=== PATIENT | female | born 1965 | race Caucasian/White ===

== ENCOUNTER → 2020-12-25 15:42 | Outpatient (BNVA) | payer BC, SELFPAY | PROVIDERS: PCP Internal Medicine; Visit Provider Internal Medicine ==

== ENCOUNTER 2022-12-25 15:49 | Outpatient (AMB) | payer BC, SELFPAY ==
[2022-12-25 16:06] VITALS: BP 120/70; PULSE 84; O2SAT 96; BMI 27.3
--- NOTE | 2022-12-25 16:06 | MHC.OFFVIS ---
Intake Vital Signs 12/25/22 16:06 Height 5 ft 3 in Weight 154 lb BMI 27.3 BP 120/70 Blood Pressure Location Lt brachial Position Sitting Pulse 84 Pulse Source Pulse Oximeter Pulse Oximetry (%) 96 Oxygen Delivery Method Room Air Intake Visit Reasons: Obstructive sleep apnea Intake Note: pt is here for follow up and states she is having a problem with use of cpap. Supervisor Lead Burning Required: No Allergies meperidine [Demerol] Allergy (Unknown, Verified 12/25/22 16:23) Unknown morphine sulfate Allergy (Unknown, Uncoded 12/25/22 16:23) Unknown sulfa Allergy (Unknown, Uncoded 12/25/22 16:23) Unknown Medication List - Last Reconciled 12/25/22 by Walker Torres MD citalopram (Celexa) 20 mg PO DAILY hydrochlorothiazide 12.5 mg PO DAILY losartan 100 mg PO DAILY xkowlinl-ysp-vgtzv acid-biotin 133.3 mcg- 1,666.7 mcg (Hair,Skin and Nails (folic acid-biotin)) caps PO multivitamin 1 tab PO DAILY rosuvastatin 5 mg PO DAILY semaglutide (weight loss) (Wegovy) mg subcut Do you need a note to return to daycare/school/sports/work: No HPI Obstructive sleep apnea HPI Details This 57 years old very pleasant female is coming after 1 year for follow-up. 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 She uses CPAP very regularly and sleeps good. Lately has had some issue with the humidification, But now that she has increased the humidification level to 7 she is sleeping better. She uses nasal pillows, and does change the . Lining every 2 weeks Overall she is fine , and stays in good health. She does have mild depression which is well controlled with citalopram 20 mg daily. [facility] Medical History (Updated 12/25/22 @ 16:30 by Walker Torres MD) Retrognathia MARAH on CPAP Review of Systems Const All systems reviewed & are unremarkable except as noted in HPI and below Reports no additional complaints Eyes Reports no additional complaints ENT Reports no additional complaints Card Denies chest pain, Denies irregular heart rhythm and Denies leg edema Resp Reports no additional complaints GI Reports no additional complaints Reports no additional complaints Musc Reports no additional complaints Skin/Breast Reports system reviewed and no additional complaints, except as documented Neuro Reports no additional complaints Psych Reports no additional complaints Physical Exam Const General: healthy appearing, comfortable, no acute distress, alert and awake Orientation/consciousness: patient oriented x3 HEENT Head: Yes normal to inspection General nose exam: No nasal polyps present and No nasal discharge present Face and sinus: Yes sinuses nontender Mouth: oropharynx normal Teeth and gingiva: other (Has Retroganthia of the lower jaw .) Throat: Yes posterior oropharynx normal Eyes General: appearance normal, both eyes and all related structures Neck Neck: Yes normal visual inspection, Yes no lymphadenopathy, Yes trachea midline and Yes no JVD Thyroid: Thyroid normal Chest Chest palpation & inspection: normal inspection of the chest, normal palpation of entire chest wall and no tenderness Resp Effort & Inspection: normal respiratory effort and symmetric chest movement Cardio Palpation: normal PMI Rate: regular rate Rhythm: regular rhythm Heart sounds: no gallops and no murmurs Peripheral pulses: Peripheral pulses 2+ throughout GI Palpation (GI): Soft to palpation, nontender, No hepatosplenomegaly present and no masses Auscultation: normal bowel sounds Back/Spine/Pelvis Thoracic/Lumbar Spine: thoracic and lumbar spine normal to inspection Skin General skin exam: no rashes or lesions noted Neuro General: patient oriented x3 and no focal motor deficits Cranial nerves: Yes CN's II-XII intact bilaterally Extrem General: Yes normal to inspection, Yes no clubbing, cyanosis or edema and Yes no calf tenderness Psych Speech and movement: Normal speech and movement present Results Reviewed Results Reviewed: Compliance report is reviewed. She has used 24/30 nights, 80% of the time. However she has used more than 4 hours for 15 nights and less than 4 hours for 9 nights. She tells me that it is due to the humidification issue that she was not able to use more than 4 hours. But now that the humidification has improved she is using it more regularly and more than 4 hours every night. Her quality of sleep is definitely better Assessment & Plan Assessment & Plan (1) MARAH on CPAP: Comment: Patient is being treated for obstructive sleep apnea. The primary cause of her MARAH is Retroganthia of the lower jaw . She is very compliant but lately using less than 4 hours due to medication issue, which seems to be corrected . She reports that her sleep has been excellent. She is using nasal pillows which is quite comfortable. Advised to continue using the CPAP regularly. I explained to her that her MARAH is due to permanent deformity, and not exactly due to overweight. So she will most likely need to use CPAP for rest of her life. 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 And she would need to use the CPAP for ever. She understands that well. Code(s): M26.19 - Other specified anomalies of jaw-cranial base relationship Coding Level of Care Code Est Pt Level 3 (41770) Diagnoses MARAH on CPAP G47.33; Z99.89 Retrognathia M26.19
== END 2022-12-25 16:23 | disposition home or self-care (01) ==
PROVIDERS: PCP Internal Medicine; Visit Provider Internal Medicine
DX: G47.33 Obstructive sleep apnea (adult) (pediatric) (principal); Z99.89 Dependence on other enabling machines and devices; M26.19 Other specified anomalies of jaw-cranial base relationship
CPT/HCPCS: 99213

== ENCOUNTER → 2022-12-25 15:49 | Outpatient (BNVA) | payer BC, SELFPAY | PROVIDERS: PCP Internal Medicine; Visit Provider Internal Medicine ==

== ENCOUNTER 2024-01-13 15:40 | Outpatient (AMB) | payer BC, SELFPAY ==
[2024-01-13 15:43] VITALS: BP 102/60; PULSE 77; O2SAT 99; BMI 27.2
--- NOTE | 2024-01-13 15:43 | MHC.OFFVIS ---
Vital Signs 01/13/24 15:43 Height 5 ft 2 in Weight 149 lb BMI 27.2 BP 102/60 Blood Pressure Location Lt brachial Position Sitting Pulse 77 Pulse Source Pulse Oximeter Pulse Oximetry (%) 99 Oxygen Delivery Method Room Air Intake Visit Reasons: salma Intake Note: pt is here for follow up of SALMA and feels good. She has been having dry mouth, has lost weight, Health And Wellness Advisor Required: No Allergies meperidine [Demerol] Allergy (Unknown, Verified 01/13/24 16:08) Unknown morphine sulfate Allergy (Unknown, Uncoded 01/13/24 16:08) Unknown sulfa Allergy (Unknown, Uncoded 01/13/24 16:08) Unknown Medication List - Last Reconciled 01/13/24 by Walker Torres MD citalopram (Celexa) 20 mg PO DAILY hydrochlorothiazide 12.5 mg PO DAILY losartan 100 mg PO DAILY wlblslvh-ygf-txaxu acid-biotin 133.3 mcg- 1,666.7 mcg (Hair,Skin and Nails (folic acid-biotin)) caps PO multivitamin 1 tab PO DAILY semaglutide (weight loss) (Wegovy) mg subcut Do you need a note to return to daycare/school/sports/work: No HPI HPI salma: Details: ANUPAMA IS 58 YEARS OLD FEMALE OF RELATIVELY NORMAL WEIGHT. SHE HAS OBSTRUCTIVE SLEEP APNEA DUE TO RETROGANTHIA OF THE LOWER JAW. SHE WAS MODERATELY OBESE BUT HAS LOST ABOUT 25+ LBS . CURRENTLY GETTING INJECTIONS OF WEGOVY . SHE USES CPAP WITH NASAL PILLOWS AND SLEEPS WELL. WAKES UP WITH DRY MOUTH, IN SPITE OF USING HUMIDIFICATION. MOST LIKELY SHE IS HAVING PERIODS OF MOUTH BREATHING DURING HER SLEEP. SHE DENIES ANY DAYTIME SLEEPINESS, HER MAIN SYMPTOM BEFORE SHE STARTED USING THE CPAP WAS EXCESSIVE DAYTIME SLEEPINESS. SHE WAS DIAGNOSED TO HAVE OBSTRUCTIVE SLEEP APNEA ABOUT 5 YEARS AGO AND SINCE THEN HAS BEEN USING CPAP REGULARLY. NOW THAT SHE HAS LOST SOME WEIGHT SHE IS REQUESTING A REPEAT SLEEP STUDY TO SEE IF SHE STILL HAS SLEEP APNEA. [facility] Medical History (Updated 01/13/24 @ 16:16 by Walker Torres MD) Weight loss Retrognathia SALMA on CPAP Social History Patient Tobacco Use Status: Never used Tobacco Review of Systems Const All systems reviewed & are unremarkable except as noted in HPI and below Reports no additional complaints Eyes Reports no additional complaints ENT Reports no additional complaints Card Denies chest pain, Denies irregular heart rhythm and Denies leg edema Resp Reports no additional complaints GI Reports no additional complaints Reports no additional complaints Musc Reports no additional complaints Skin/Breast Reports system reviewed and no additional complaints, except as documented Neuro Reports no additional complaints Psych Reports no additional complaints Physical Exam Vital Signs: Last Vital Signs Pulse 77 01/13/24 15:43 BP 102/60 01/13/24 15:43 Pulse Ox 99 01/13/24 15:43 Oxygen Delivery Method Room Air 01/13/24 15:43 BMI result Body Mass Index 27.2 Const General: healthy appearing, comfortable, no acute distress, alert and awake Orientation/consciousness: patient oriented x3 HEENT Head: Yes normal to inspection General nose exam: No nasal polyps present and No nasal discharge present Face and sinus: Yes sinuses nontender Mouth: oropharynx normal Teeth and gingiva: other (Has Retroganthia of the lower jaw .) Throat: Yes posterior oropharynx normal Eyes General: appearance normal, both eyes and all related structures Neck Neck: Yes normal visual inspection, Yes no lymphadenopathy, Yes trachea midline and Yes no JVD Thyroid: Thyroid normal Chest Chest palpation & inspection: normal inspection of the chest, normal palpation of entire chest wall and no tenderness Resp Effort & Inspection: normal respiratory effort and symmetric chest movement Cardio Palpation: normal PMI Rate: regular rate Rhythm: regular rhythm Heart sounds: no gallops and no murmurs Peripheral pulses: Peripheral pulses 2+ throughout GI Palpation (GI): Soft to palpation, nontender, No hepatosplenomegaly present and no masses Auscultation: normal bowel sounds Back/Spine/Pelvis Thoracic/Lumbar Spine: thoracic and lumbar spine normal to inspection Skin General skin exam: no rashes or lesions noted Neuro General: patient oriented x3 and no focal motor deficits Cranial nerves: Yes CN's II-XII intact bilaterally Extrem General: Yes normal to inspection, Yes no clubbing, cyanosis or edema and Yes no calf tenderness Psych Speech and movement: Normal speech and movement present Results Reviewed Results Reviewed: COMPLIANCE REPORT IS FOLLOWS USED 25/30 NIGHTS, 83% AVERAGE USE PER NIGHT 6 HOURS 27 MINUTES PRESSURE USED 12-13 CM THERE IS NO AIR LEAK ISSUE. 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 And she would need to use the CPAP for ever. She understands that well. However she has lost to about 20 lb of weight and is interested in knowing if she still has significant obstructive sleep apnea. Code(s): M26.19 - Other specified anomalies of jaw-cranial base relationship Category: Medical Plan: Plan to repeat sleep study (2) SALMA on CPAP: Comment: Patient is being treated for obstructive sleep apnea. The primary cause of her SALMA is Retroganthia of the lower jaw . She is very compliant and uses for almost 6 hours every night. She reports that her sleep has been excellent. She is using nasal pillows which is quite comfortable. Lately she is getting little tired of using the CPAP and wonders if she can go without that. Code(s): G47.33 - Obstructive sleep apnea (adult) (pediatric); Z99.89 - Dependence on other enabling machines and devices Category: Medical Plan: I explained to her that her SALMA is due to permanent deformity, and not exactly due to overweight. So she will most likely need to use CPAP for rest of her life. However as she has lost 20 lb of weight, I would order a home-based sleep study to see if she still has significant obstructive sleep apnea. Orders: Orders RT home sleep study Today G47.33 - Obstructive sleep apnea (adult) (pediatric), M26.19 - Other specified anomalies of jaw-cranial base relationship, Z99.89 - Dependence on other enabling machines and devices Coding Level of Care Code Est Pt Level 3 (13130) Diagnoses Retrognathia M26.19 SALMA on CPAP G47.33; Z99.89
== END 2024-01-13 16:08 | disposition home or self-care (01) ==
PROVIDERS: PCP Internal Medicine; Visit Provider Internal Medicine
DX: M26.19 Other specified anomalies of jaw-cranial base relationship (principal); G47.33 Obstructive sleep apnea (adult) (pediatric); Z99.89 Dependence on other enabling machines and devices
CPT/HCPCS: 99213

== ENCOUNTER → 2024-01-13 15:40 | Outpatient (BNVA) | payer BC, SELFPAY | PROVIDERS: PCP Internal Medicine; Visit Provider Internal Medicine ==

== ENCOUNTER 2025-01-18 15:51 | Outpatient (AMB) | payer BC, SELFPAY ==
[2025-01-18 15:55] VITALS: BP 110/70; PULSE 84; O2SAT 98; BMI 27.8
--- NOTE | 2025-01-18 15:55 | A.OFFVIS_ITS ---
Vital Signs 01/18/25 15:55 Height 5 ft 2 in Weight 152 lb 1.903 oz BMI 27.8 BP 110/70 Blood Pressure Location Lt brachial Position Sitting Pulse 84 Pulse Source Pulse Oximeter Pulse Oximetry (%) 98 Oxygen Delivery Method Room Air Intake Visit Reasons: Obstructive sleep apnea Intake Note: pt is here for follow up of MARAH, and has a new machine. She is seeing events on the new machine Salvage Cutter Required: No Rotary Drill Operator: Rotary Drill Operator offered & declined Allergies meperidine (Demerol) Allergy (Unknown, Verified 01/18/25 16:25) Unknown morphine sulfate Allergy (Unknown, Uncoded 01/18/25 16:25) Unknown sulfa Allergy (Unknown, Uncoded 01/18/25 16:25) Unknown Medication List - Last Reconciled 01/18/25 by Walker Torres MD bempedoic acid-ezetimibe 180-10 mg (Nexlizet) 1 tab PO DAILY citalopram (Celexa) 20 mg PO DAILY hydrochlorothiazide 12.5 mg PO DAILY losartan 100 mg PO DAILY nagywmzk-cpl-zyzyw acid-biotin 133.3 mcg- 1,666.7 mcg (Hair,Skin and Nails (folic acid-biotin)) caps PO multivitamin 1 tab PO DAILY semaglutide (weight loss) (Wegovy) mg subcut Do you need a note to return to daycare/school/sports/work: No HPI HPI Obstructive sleep apnea: Details: ANUPAMA 59 YEARS OLD VERY PLEASANT FEMALE IS KNOWN TO HAVE OBSTRUCTIVE SLEEP APNEA, DUE TO RETROGNATHIA OF THE LOWER JAW. SHE USES CPAP VERY REGULARLY . SHE GOT NEW CPAP DEVICE WHICH SHE IS USING , SHE GETS AN ALERT THAT THERE WERE SOME EVENTS DURING THE NIGHT AND IS . CONCERNED ABOUT THAT HOWEVER SHE USES CPAP WITHOUT ANY DIFFICULTY AND SLEEPS GOOD. IF AND WHEN SHE DOES NOT USE THE CPAP AT NIGHT, HER SLEEP IS NOT THAT GOOD. SHE REMAINS VERY COMPLIANT. SHE COMES FOR FOLLOW-UP ONLY ONCE A YEAR . [facility] Medical History Weight loss Retrognathia MARAH on CPAP Social History Patient Tobacco Use Status: Never used Tobacco Review of Systems Const All systems reviewed & are unremarkable except as noted in HPI and below Reports no additional complaints Eyes Reports no additional complaints ENT Reports no additional complaints Card Denies chest pain, Denies irregular heart rhythm and Denies leg edema Resp Reports no additional complaints GI Reports no additional complaints Reports no additional complaints Musc Reports no additional complaints Skin/Breast Reports system reviewed and no additional complaints, except as documented Neuro Reports no additional complaints Psych Reports no additional complaints Physical Exam Vital Signs: Last Vital Signs Pulse 84 01/18/25 15:55 BP 110/70 01/18/25 15:55 Pulse Ox 98 01/18/25 15:55 Oxygen Delivery Method Room Air 01/18/25 15:55 BMI result Body Mass Index 27.8 Const General: healthy appearing, comfortable, no acute distress, alert and awake Orientation/consciousness: patient oriented x3 HEENT Head: Yes normal to inspection General nose exam: No nasal polyps present and No nasal discharge present Face and sinus: Yes sinuses nontender Mouth: oropharynx normal Teeth and gingiva: other (Has Retroganthia of the lower jaw .) Throat: Yes posterior oropharynx normal Eyes General: appearance normal, both eyes and all related structures Neck Neck: Yes normal visual inspection, Yes no lymphadenopathy, Yes trachea midline and Yes no JVD Thyroid: Thyroid normal Chest Chest palpation & inspection: normal inspection of the chest, normal palpation of entire chest wall and no tenderness Resp Effort & Inspection: normal respiratory effort and symmetric chest movement Cardio Palpation: normal PMI Rate: regular rate Rhythm: regular rhythm Heart sounds: no gallops and no murmurs Peripheral pulses: Peripheral pulses 2+ throughout GI Palpation (GI): Soft to palpation, nontender, No hepatosplenomegaly present and no masses Auscultation: normal bowel sounds Back/Spine/Pelvis Thoracic/Lumbar Spine: thoracic and lumbar spine normal to inspection Skin General skin exam: no rashes or lesions noted Neuro General: patient oriented x3 and no focal motor deficits Cranial nerves: Yes CN's II-XII intact bilaterally Extrem General: Yes normal to inspection, Yes no clubbing, cyanosis or edema and Yes no calf tenderness Psych Speech and movement: Normal speech and movement present Results Reviewed Results Reviewed: COMPLIANCE REPORT FOR THE LAST 30 NIGHTS SHOWS THAT SHE USED 26/30 NIGHTS, 87% SHE SAY IS THAT SOME OF THE NIGHTS ESPECIALLY OVER THE WEEKEND SHE TAKES A BREAK, IF SHE HAS OVER EATEN AND FEELS GASSY IN HER STOMACH. HER AVERAGE USAGE PER NIGHT IS 7 HOURS 59 MIN UTES WHICH IS EXCELLENT THERE IS NO SIGNIFICANT AIR LEAK AND PRESSURE USED MOSTLY IN RANGE OF 8-10 CM RESIDUAL AHI ONLY 1.3. I TOLD HER THAT ACCORDING TO THE COMPLIANCE REPORT SHE IS USING VERY GOOD AND THERE IS NO SIGNIFICANT RESIDUAL SLEEP APNEA. NO MATTER WHAT HER Assessment & Plan Assessment & Plan (1) MARAH on CPAP: Comment: Patient is being treated for obstructive sleep apnea. The primary cause of her MARAH is Retroganthia of the lower jaw . She is very compliant and uses for almost 7-8 hours every night. She reports that her sleep has been excellent. She is using nasal pillows which is quite comfortable. Lately she is getting little tired of using the CPAP and wonders if she can go without that. Code(s): G47.33 - Obstructive sleep apnea (adult) (pediatric); Z99.89 - Dependence on other enabling machines and devices Category: Medical Plan: I EXPLAINED TO HER THAT SHE NEEDS TO USE CPAP EVERY NIGHT, ON A PERMANENT. ALSO TOLD HER THAT SHE IS DOING VERY WELL WITH THE USE OF CPAP. 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 And she would need to use the CPAP for ever. She understands that well. Code(s): M26.19 - Other specified anomalies of jaw-cranial base relationship Category: Medical Plan: ABOVE Coding Level of Care Code Est Pt Level 3 (06058) Diagnoses MARAH on CPAP G47.33; Z99.89 Retrognathia M26.19
--- OUTSIDE RECORDS SUMMARY | 2025-01-18 18:23 | XMS_ITS | Clinical Summary ---
Author Organization [facility] Address [address] [place] [address] Care Team Providers Care Amortization Schedule Clerk Name Role Phone Meir Montes MD Primary Care Provider [phone] Allergies Active Allergy Reactions Criticality Noted Date Comments Meperidine 11/16/2019 Morphine 11/16/2019 Sulfa Antibiotics 10/23/2017 Tyloxapol 10/23/2017 Medications Medication Sig Dispensed Refills Start Date End Date Status atorvastatin (LIPITOR) tablet 20 mgIndications:twice a week Take 1 tablet (20 mg total) by mouth daily. 0 Active citalopram (CeleXA) 40 MG tablet Take 10 mg by mouth daily. 0 Active citalopram (CeleXA) 20 MG tablet Take 1 tablet (20 mg total) by mouth daily. 0 Active rosuvastatin (CRESTOR) tablet 5 mg Take 1 tablet (5 mg total) by mouth daily. 0 Active Multiple Vitamin (MULTIVITAMIN ADULT PO) Take by mouth daily. 0 Active losartan (COZAAR) 100 MG tablet Take 1 tablet (100 mg total) by mouth daily. 0 Active semaglutide-weight management (Wegovy) 1 MG/0.5ML subcutaneous auto-injector Inject 1.2 mL (2.4 mg total) under the skin. 0 Active hydroCHLOROthiazide (MICROZIDE) 12.5 MG capsule Take 1 capsule (12.5 mg total) by mouth daily. 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 At high risk for breast cancer 11/18/2017 Family History Medical History Relation Name Comments Cancer Cousin breast cancer Cancer Father prostate and bl adder cancer Heart disease Father Heart disease Maternal Grandfather Hypertension Maternal Grandfather Diabetes Maternal Grandmother Hypertension Maternal Grandmother Stroke Maternal Grandmother Diabetes Mother Hypertension Mother Cancer Paternal Aunt 1 breast Cancer Paternal Aunt 2 breast No Sig Med Hx Paternal Aunt 3 Appendicitis Paternal Grandfather Alzheimer's disease Paternal Grandmother No Sig Med Hx Paternal Uncle No Sig Med Hx Sister Relation Name Status Comments Cousin (Age 51) Father Alive Maternal Grandfather Maternal Grandmother Mother Alive Paternal Aunt 1 Alive Paternal Aunt 2 Alive Paternal Aunt 3 Alive Paternal Grandfather Paternal Grandmother Paternal Uncle Alive Sister Alive Social History Tobacco Use Types Packs/Day Years Used Date Smoking Tobacco: Never Smokeless Tobacco: Never Alcohol Use Standard Drinks/Week Comments Yes 0 (1 standard drink = 0.6 oz pur e alcohol) social Sex and Gender Information Value Date Recorded Sex Assigned at Not on file Gender Identity Not on file Sexual Orientation Not on file Job Start Date Occupation Industry Not on file Not on file Not on file Last Filed Vital Signs Vital Sign Reading Time Taken Comments Blood Pressure 110/60 09/15/2023 2:43 PM EDT Pulse 79 09/15/2023 2:43 PM EDT Temperature 37.1 C (98.8 F) 09/15/2023 2:43 PM EDT Respiratory Rate - - Oxygen Saturation 98% 09/15/2023 2:43 PM EDT Inhaled Oxygen Concentration - - Weight 65.3 kg (144 lb) 09/15/2023 2:43 PM EDT Height 157.5 cm (5' 2 ) 09/15/2023 2:43 PM EDT Body Mass Index 26.34 09/15/2023 2:43 PM EDT Plan of Treatment Health Maintenance Due Date Last Done Comments Hepatitis C Screening 1964 COVID-19 Vaccine (#1) 03/03/1965 Depression Screening 1976 BMI Counseling 1982 Preventative Health Evaluation 1982 DTap / Tdap / Td (1 - Tdap) 09/01/1983 Cervical Cancer Screening (P ap Smear) 1985 Colon Cancer Screening (Colonoscopy) 2009 Breast Cancer Screening (Mammogram) 2014 Shingrix-Zoster Vaccine (1 of 2) 2014 Influenza Vaccine (#1) 2024 12/29/2017 RSV Adult > 60+ Yrs or Pregn ant (1 - 1-dose 75+ series) 09/01/2039 Hepatitis B Vaccines Aged Out No long er eligible based on patient's age to complete this topic Pneumococcal Vaccine Aged Out No long er eligible based on patient's age to complete this topic RSV Ped < 20 months Aged Out No longe r eligible based on patient's age to complete this topic Care Teams Amortization Schedule Clerk Relationship Specialty Start Date End Date Meir Montes MD [address] [facility] [address] [place] [address] PCP - General V Groove Cutter 07/24/17
--- OUTSIDE RECORDS SUMMARY | 2025-01-18 18:23 | XMS_ITS | Clinical Summary ---
Author Organization [facility] Address [address] [place] [address] Phone Care Team Providers Care Cooker Chip Name Role Phone Meir Montes MD Primary Care Provider [phone] Allergies Active Allergy Reactions Criticality Noted Date Comments Meperidine 11/16/2019 Morphine 11/16/2019 Sulfa (Sulfonamide Antibiotics) 10/05 Tyloxapol 10/23/2017 Medications citalopram (CeleXA) 20 mg tablet Take 1 tablet (20 mg total) by mouth daily. Active hydroCHLOROthiazi de (MICROZIDE) 12.5 mg capsule Take 1 capsule (12.5 mg total) by mouth daily. Active losartan (COZAAR) 100 mg tablet Take 1 tablet (100 mg total) by mouth daily. Active multivit-min/iron /folic acid/K (ADULTS MULTIVITAMIN ORAL) Take by mouth daily. Active semaglutide (Wegovy) 1 mg/0.5 mL injection pen Inject 1.2 mL (2.4 mg total) under the skin. Active buPROPion XL (WELLBUTRIN XL) 150 mg 24 hr tablet Take 1 tablet (150 mg total) by mouth 1 (one) time each day. Do not crush, chew, or split. Active Nexlizet 180-10 mg tablet Take 1 tablet by mouth 1 (one) time each day. 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 11/05 Encounters Date Type Department Care Team Description 01/06/2025 Telephone [facility] Hematology Oncology [address] [place] [address] Yudith Boateng DO from Last 3 Months Surgical History Surgery Date Site/Laterality Comments BREAST LUMPECTOMY PROCEDURE:BREAST LUMPECTOMY HYSTERECTOMY PROCEDURE:HYSTERECTOMY CHOLECYSTECTOMY PROCEDURE:CHOLECYSTECTOMY Family History Medical History Relation Name Comments Cancer Cousin breast cancer Cancer Father prostate and bl adder cancer Heart disease Father No Known Problems Father's Brother Cancer Father's Sister 1 breast Cancer Father's Sister 2 breast No Known Problems Father's Sister 3 Heart disease Maternal Grandfather Hypertension Maternal Grandfather Diabetes Maternal Grandmother Hypertension Maternal Grandmother Stroke Maternal Grandmother Diabetes Mother Hypertension Mother Appendicitis Paternal Grandfather Alzheimer's disease Paternal Grandmother No Known Problems Sister Relation Name Status Comments Cousin (Age 51) Father Alive Father's Brother Alive Father's Sister 1 Alive Father's Sister 2 Alive Father's Sister 3 Alive Maternal Grandfather Maternal Grandmother Mother Alive Paternal Grandfather Paternal Grandmother Sister Alive Social History Tobacco Use Types Packs/Day Years Used Date Smoking Tobacco: Never Smokeless Tobacco: Never Alcohol Use Standard Drinks/Week Comments Yes 0 (1 standard drink = 0.6 oz pur e alcohol) Comments Unknown Sex and Gender Information Value Date Recorded Sex Assigned at Not on file Legal Sex Female 6:46 AM EST Gender Identity Not on file Sexual Orientation Not on file Obstetrics History Last Filed Vital Signs Vital Sign Reading Time Taken Comments Blood Pressure 106/79 08/19/2024 2:28 PM EDT Pulse 80 08/19/2024 2:28 PM EDT Temperature 37 C (98.6 F) 08/19/2024 2:28 PM EDT Respiratory Rate - - Oxygen Saturation 98% 08/19/2024 2:28 PM EDT Inhaled Oxygen Concentration - - Weight 64.4 kg (142 lb) 08/19/2024 2:28 PM EDT Height 157.5 cm (5' 2 ) 08/19/2024 2:28 PM EDT Body Mass Index 25.97 08/19/2024 2:28 PM EDT Plan of Treatment Upcoming Encounters Date Type Department Care Team (Late st Contact Info) Description 02/21/2025 2:45 PM EST Office Visit [facility] Hematology Oncology [address] [place] [id number] Yudith Boateng, [address] [place] [address] Health Maintenance Due Date Last Done Comments Breast Cancer Screening 1964 DTaP,Tdap,and Td Vaccines (1 - Tdap) 09/01/1983 Cervical Cancer Screening: Pap Smear 1985 Zoster Vaccines (1 of 2) 2014 Cholesterol Screening (Lipid Panel) 03/15/2022 HIV Screening 03/15/2022 Hepatitis C Screening 03/15/2022 Social Influencers of Health Screening 03/15/2022 Depression Screening 04/07/2024 Influenza Vaccine (#1) 2024 , 01/06/2023, 01/19/2021, Additional history exists Colorectal Cancer Screening: Colonoscopy 05/16/2026 RSV Immunization Adult Patients (1 - 1-dose 75+ series) 09/01/2039 COVID-19 Vaccine Completed 01/09/2024, , 09/01/2021, Additional history exists Pneumococcal Vaccine: 50+ Years Completed 04/02/2024 HIB Vaccines Aged Out No longer eligi ble based on patient's age to complete this topic HPV Vaccines Aged Out No longer eligi ble based on patient's age to complete this topic Hepatitis A Vaccines Aged Out No long er eligible based on patient's age to complete this topic Hepatitis B Vaccines Aged Out No long er eligible based on patient's age to complete this topic IPV Vaccines Aged Out No longer eligi ble based on patient's age to complete this topic MMR Vaccines Aged Out No longer eligi ble based on patient's age to complete this topic Meningococcal ACWY Vaccine Aged Out N o longer eligible based on patient's age to complete this topic Meningococcal B Vaccine Aged Out No l onger eligible based on patient's age to complete this topic RSV Immunization Patients Under 20 months Aged Out No longer eligible based on patient's age to complete this topic Varicella Vaccines Aged Out No longer eligible based on patient's age to complete this topic Insurance [facility] Care Teams Cooker Chip Relationship Specialty Start Date End Date Meir Montes MD [address] [place] [address] PCP - General Internal Medicine 07/27/20
--- OUTSIDE RECORDS SUMMARY | 2025-01-18 18:23 | XMS_ITS | Encounter Summary ---
Author Organization [facility] Address [address] [place] [address] Care Team Providers Care Air Moving Technician Name Role Phone Meir Montes Primary Care Provider [phone] Encounter Details Date Type Department Care Team (Late st Contact Info) Description 10/09/2016 Orders Only [facility] [address] [address] Meir Montes [address] [address] Social History Tobacco Use Types Packs/Day Years Used Date Smoking Tobacco: Never Assessed Comments Unknown Sex and Gender Information Value Date Recorded Sex Assigned at Female 11/20/2021 1:07 PM EDT Legal Sex Female 6:44 PM EDT Gender Identity Female 11/20/2021 1:07 PM EDT Sexual Orientation Straight 03/25/2022 10 :43 AM EST documented as of this encounter Plan of Treatment Not on file documented as of this encounter Visit Diagnoses Not on filedocumented in this encounter Care Teams Air Moving Technician Relationship Specialty Start Date End Date Meir Montes [address] [address] PCP - General 10/24/16 documented as of this encounter
--- OUTSIDE RECORDS SUMMARY | 2025-01-18 18:23 | XMS_ITS | Clinical Summary ---
Author Organization [facility] Address [address] [place] [address] Care Team Providers Care Systems Test Technician Name Role Phone Jose EliasMeir whaley Primary Care Provider [phone] Allergies Active Allergy Reactions Criticality Noted Date Comments Aspirin Bleeding High 06/24/2022 Meperidine Delirium 12/29/2017 Other reaction(s): elevated BP crazy Morphine Delirium 12/29/2017 Other reaction(s): elevated BP crazy Oxycodone-Acetaminophen Vomiting 08/13/2021 Other reaction(s): extreme vomiting Sulfa (Sulfonamide Antibiotics) Itching 10/23/2017 Tyloxapol Vomiting 10/23/2017 Medications citalopram (CeleXA) 20 mg tablet Take 1 tablet (20 mg total) by mouth once a day. 90 tablet 3 05/08/2022 11:38 AM EST 2 Active amLODIPine (NORVASC) 2.5 mg tablet 2 Active rosuvastatin (CRESTOR) 5 mg tablet Take 5 mg by mouth. 2 Active losartan (COZAAR) 50 mg tablet Take 50 mg by mouth once a day. 3 Active multivitamin capsule Take 1 capsule by mouth once a day. Active oxyCODONE IR (ROXICODONE) 5 mg tablet Take 1 tablet (5 mg total) by mouth every 4 hours as needed for breakthrough pain. Max Daily Amount: 30 mg 7 tablet 3 Active losartan (COZAAR) 100 mg tablet 3 Active semaglutide, weight loss, (Wegovy) 2.4 mg/0.75 mL pen injector Inject 0.75 mL (2.4 mg total) under the skin once a week on the same day of each week. 3 mL 11 12/02/2023 2:27 PM EDT Active Active Problems Problem Noted Date Diagnosed Date Blepharochalasis of upper and lower eyelids of b oth eyes 08/13/2021 Age-related facial wrinkles 08/13/2021 Atypical ductal hyperplasia of right breast 11/05 Shoulder pain 08/17/2014 Family History Medical History Relation Name Comments Other Father Family History of malignant neoplasm of prostate Other Mother Family History of hypertension Relation Name Status Comments Father Mother Social History Tobacco Use Types Packs/Day Years Used Date Smoking Tobacco: Never Smokeless Tobacco: Never Tobacco Cessation:Counseling Given: Not Answered Comments:: Alcohol Use Standard Drinks/Week Comments Yes 0 (1 standard drink = 0.6 oz pur e alcohol) 2 drinks 2 or 3 times a month Comments No Sex and Gender Information Value Date Recorded Sex Assigned at Female 11/20/2021 1:07 PM EDT Legal Sex Female 6:44 PM EDT Gender Identity Female 11/20/2021 1:07 PM EDT Sexual Orientation Straight 03/25/2022 10 :43 AM EST Last Filed Vital Signs Vital Sign Reading Time Taken Comments Blood Pressure 147/71 05/29/2022 2:00 PM EST Pulse 94 05/29/2022 2:00 PM EST Temperature 37.3 C (99.1 F) 05/29/2022 11:45 AM EST Respiratory Rate 19 05/29/2022 2:00 PM EST Oxygen Saturation 96% 05/29/2022 2:00 PM EST Inhaled Oxygen Concentration - - Weight 73 kg (161 lb) 05/29/2022 6:31 AM EST Height 160 cm (5' 3 ) 05/29/2022 6:31 AM EST Body Mass Index 28.52 05/29/2022 6:31 AM EST Plan of Treatment Health Maintenance Due Date Last Done Comments Cologuard 1965 Colon Cancer Screening 1964 Colonoscopy 1964 FOBT / Fit Test 1964 HIV Screening 1964 Hepatitis C Screening 1964 Sigmoidoscopy 1964 DTaP,Tdap,and Td Vaccines (1 - Tdap) 1986 Mammogram 2004 Pneumococcal Vaccine: 50+ Years (1 of 1 - PCV) 2014 Zoster Vaccines (1 of 2) 2014 Alcohol/Substance Use Screening 04/07/2024 Depression Screening and Follow-Up 04/07/2024 Social Drivers of Health Annual Screening 04/07/2024 COVID-19 Vaccine ( season) 2024 09/01/2021, 02/12/2021, 05/08/2020, Additional history exists Influenza Vaccine (#1) 2024 , 12/29/2017, 01/15/2017 RSV Vaccine (60+ years old and patients) (1 - 1-dose 75+ series) 09/01/2039 Hepatitis B Vaccines Aged Out No long er eligible based on patient's age to complete this topic Insurance [facility] HMO/POS Advance Directives * Full Code (Latest Code Status on File) Date Activated Date Inactivated Comments 05/29/2022 6:19 AM 05/29/2022 7:00 PM * Full Code Date Activated Date Inactivated Comments 04/02/2022 6:43 AM 04/02/2022 1:38 PM Care Teams Systems Test Technician Relationship Specialty Start Date End Date Meir Montes [address] [place] [address] [place] [id number] PCP - General 10/24/16
--- OUTSIDE RECORDS SUMMARY | 2025-01-18 18:23 | XMS_ITS | Encounter Summary ---
Author Organization [facility] Address [address] [place] [address] Care Team Providers Care Lamination Technician Name Role Phone Meir Montes MD Primary Care Provider [phone] Reason for Visit * Reason Onset Date Comments Appointment 01/06/2025 Encounter Details Date Type Department Care Team (Late Contact Info) Description 01/06/2025 Telephone [facility] Hematology Oncology [address] [place] [phone] Yudith Boateng, DO [address] [place] [address] Social History Tobacco Use Types Packs/Day Years Used Date Smoking Tobacco: Never Smokeless Tobacco: Never Alcohol Use Standard Drinks/Week Comments Yes 0 (1 standard drink = 0.6 oz pur e alcohol) Comments Unknown Sex and Gender Information Value Date Recorded Sex Assigned at Not on file Legal Sex Female 6:46 AM EST Gender Identity Not on file Sexual Orientation Not on file documented as of this encounter Progress Notes * Inez Moyer - 01/07/2025 3:32 PM EDT MRI dept February schedule not yet open. Will send order at mid to late January * Man Black - 01/06/2025 11:15 AM EDT Lidia calls to confirm the date of her upcoming appt - 02/21/25. States an MRI is needed prior to appt. Order is placed for MR Breast. May be reached at [phone] with appt details. documented in this encounter Plan of Treatment Upcoming Encounters Date Type Department Care Team (Late st Contact Info) Description 02/21/2025 2:45 PM EST Office Visit [facility] Hematology Oncology [address] [place] [address] Yudith Boateng, [address] [place] [address] documented as of this encounter Visit Diagnoses Not on filedocumented in this encounter Care Teams Lamination Technician Relationship Specialty Start Date End Date Meir Montes MD [address] [place] [address] PCP - General Internal Medicine 07/27/20 documented as of this encounter
== END 2025-01-18 16:15 | disposition home or self-care (01) ==
LOC: HO.HPS 15:51
PROVIDERS: PCP Internal Medicine; Visit Provider Internal Medicine
DX: G47.33 Obstructive sleep apnea (adult) (pediatric) (principal); Z99.89 Dependence on other enabling machines and devices; M26.19 Other specified anomalies of jaw-cranial base relationship
CPT/HCPCS: 99213